=== PATIENT | male | born 1950 | race Caucasian/White ===

== ENCOUNTER 2018-09-02 22:29 | Emergency (ER) | payer MEDICARE ==
[~2018-09-02] VITALS: Ht 175.3 cm; Wt 115.0 kg
[2018-09-02 22:32] VITALS: BP 162/90
--- NOTE | 2018-09-02 22:43 | NUR ---
Pt presents to ed c/o urinary retention since 1930 this pm. States hx of this in past and had cath w/ follow up to urology. States bladder pain/pressure and feels the urge to urinate. Denies any further medical complaints. Provider at bedside for assessment.
--- NOTE | 2018-09-02 23:05 | NUR ---
Pt bladder scanned and 13 mL noted. No pain w/ palpation and no swelling noted.
[2018-09-02 23:21] LABS: BASOPHILS # (AUTO) 0.05 x10^3/uL (0-0.1); BASOPHILS % (AUTO) 1 % (0-1); EOSINOPHILS # (AUTO) 0.04 x10^3/uL (0-0.4); EOSINOPHILS % (AUTO) 0 % (1-7); LYMPHOCYTES # (AUTO) 1.59 x10^3/uL (1-3.4); LYMPHOCYTES % (AUTO) 18 % (22-44); MD NO; MEAN CORPUSCULAR VOLUME 102.9 fL (81-97); MEAN PLATELET VOLUME 9.1 fL (7.4-10.4); MONOCYTES % (AUTO) 10 % (2-9); NEUTROPHILS # (AUTO) 6.35 x10^3/uL (1.8-6.8); NEUTROPHILS % (AUTO) 71 % (42-75); PLATELET COUNT 212 x10^3/uL (130-400); RED CELL DISTRIBUTION WIDTH 13.2 % (9.4-14.8)
[2018-09-02 23:23] LABS: MICROSCOPIC NOT IND
[2018-09-02 23:25] LABS: CULTURE INDICATED? NO
[2018-09-02 23:30] LABS: ALBUMIN 4.1 g/dL (3.4-5.0); ANION GAP 6 mmol/L (5-15); CALCIUM 9.5 mg/dL (8.5-10.1); CHLORIDE 110 mmol/L (98-107)
== END 2018-09-02 23:55 | disposition home or self-care (01) ==
LOC: ED 22:55
DX: R33.9 Retention of urine, unspecified (principal); I10 Essential (primary) hypertension
CPT/HCPCS: 36415; 80048; 81003; 82040; 85025; 99284